=== PATIENT | female | born 1960 | race Caucasian/White ===

== ENCOUNTER → 2016-06-02 | Outpatient (CLI) | payer BC, OTHER ==
--- NOTE | 2016-06-03 06:51 | REP ---
Clinical: Thyroid goiter. Comparison: 07/24/2015. Technique: Real time alexandra scale and color evaluation using linear high frequency transducer. Findings: Enlarged heterogeneous multinodular thyroid gland is again appreciated and relatively unchanged. Right lobe measures 6.7 x 2.1 x 2.9 cm with multiple stable nodules as well as the largest heterogeneous mid pole nodule which has increased to 3.2 cm maximal diameter. Left lobe measures 5.8 x 2.2 x 2.4 cm with stable nodules measuring up to 2.2 cm maximal diameter. Isthmus measures 11 mm in width. Impression: Heterogeneous multinodular goiter. Largest nodule identified in the right lobe measures 3.2 cm, is otherwise nonspecific and mildly increased when compared to prior examination. Signed by Geovani Erwin MD 06/03/2016 06:42 A
== END ==
LOC: M RAD 10:02
PROVIDERS: ATTEND Internal Medicine Endocrinology, Diabetes & Metabolism
DX: E07.9 Disorder of thyroid, unspecified (principal)

== ENCOUNTER → 2016-11-16 | Outpatient (CLI) | payer BC, OTHER ==
--- NOTE | 2016-11-17 04:25 | REP ---
Clinical: Multinodular goiter. Comparison: 06/02/2016, 07/14/2015, 06/17/2014. Technique: Real time alexandra scale ultrasound examination using curved array high frequency transducer. Findings: The thyroid gland is diffusely enlarged and heterogeneous without significant change from prior examination. Right lobe measures 6.3 x 2.8 x 3.1 cm and includes multiple nodules including 3.2 x 3.0 x 2.5 cm heterogeneous mid/lower pole nonspecific nodule, 1.0 x 1.2 x 1.1 cm heterogeneous nonspecific and pole nodule, and 3 x 3 x 4 mm upper pole hypoechoic cyst/nodule along with multiple more subtle/vague nodular areas. Left lobe measures 5.4 x 2.1 x 2.4 cm and includes 2.8 x 1.3 x 2.2 cm heterogeneous mid pole nonspecific nodule, 7 x 6 x 6 mm heterogeneous lower pole nodule, and 8 x 7 x 8 mm heterogeneous mid upper pole nodule along with multiple more subtle/vague nodular areas. Impression: Multinodular goiter similar to prior examination. Signed by Geovani Erwin MD 11/17/2016 04:17 A
== END ==
LOC: M RAD 12:46
PROVIDERS: ATTEND Internal Medicine Endocrinology, Diabetes & Metabolism
DX: E04.9 Nontoxic goiter, unspecified (principal)

== ENCOUNTER → 2017-12-15 | Outpatient (CLI) | payer BC, OTHER | LOC: M RAD 12:49 | DX: E04.2 Nontoxic multinodular goiter (principal) | CPT/HCPCS: 76536 ==

== ENCOUNTER → 2019-04-13 | Outpatient (CLI) | payer BC, OTHER ==
--- NOTE | 2019-04-13 13:43 | REP ---
THYROID ULTRASOUND: Real-time sonographic evaluation of the thyroid performed. Both lobes are enlarged. Right lobe measures 7.8 x 2.7 x 3.3 cm and left lobe 6.9 x 2.3 x 2.8 cm. There is diffuse heterogeneous echotexture bilaterally. Several nodes are seen which appear grossly unchanged since the prior studies. A dominant nodule in the mid right lobe measures 2.8 x 1.9 x 3.5 cm containing tiny cystic areas. There is an adjacent complex cystic nodule measuring 1.1 cm in diameter. In the right upper pole, there is a nodule measuring 1.1 x 0.7 x 1.2 cm. In the medial mid left lobe, there is a nodule 1.9 x 1.4 x 2.1 cm. Inferior to that, there is another nodule 2.0 x 1.5 x 1.3 cm. IMPRESSION: Moderate enlargement of the thyroid with bilateral nodules which appear essentially stable compared to prior studies. Electronically Signed by Raymond Pacheco MD 04/17/2019 03:55 P
== END ==
LOC: M RAD 12:19
PROVIDERS: ATTEND Internal Medicine Endocrinology, Diabetes & Metabolism
DX: E05.00 Thyrotoxicosis with diffuse goiter without thyrotoxic crisis or storm (principal)